=== PATIENT | female | born 1965 | race Caucasian/White ===

== ENCOUNTER → 2018-01-16 | Outpatient (CLI) | payer OTHER ==
--- NOTE | 2018-01-18 09:50 | MM ---
Reason for exam: screening (asymptomatic). Last mammogram was performed 2 years and 10 months ago. History: Took hormonal contraceptives for 10 years beginning at age 21. Physical Findings: A clinical breast exam by your physician is recommended on an annual basis and results should be correlated with mammographic findings. MG 3D Screening Mammo W/Cad Bilateral CC and MLO view(s) were taken. Prior study comparison: March 28, 2015, bilateral MG 3d screening mammo w/cad. October 22, 2013, mammogram, performed at [facility]. The breast tissue is heterogeneously dense. This may lower the sensitivity of mammography. There is no discrete abnormality. ASSESSMENT: Negative, BI-RAD 1 RECOMMENDATION: Routine screening mammogram of both breasts in 1 year.
== END | disposition home or self-care (01) ==
LOC: RADMAMWWP 07:10
PROVIDERS: ATTEND Obstetrics & Gynecology
DX: Z12.31 Encounter for screening mammogram for malignant neoplasm of breast (principal)
CPT/HCPCS: 77063; 77067

== ENCOUNTER → 2019-03-06 | Outpatient (CLI) | payer OTHER ==
--- NOTE | 2019-03-07 10:41 | MM ---
Reason for exam: screening (asymptomatic). Last mammogram was performed 1 year and 2 months ago. History: Took hormonal contraceptives for 10 years beginning at age 21. Physical Findings: A clinical breast exam by your physician is recommended on an annual basis and results should be correlated with mammographic findings. MG 3D Screening Mammo W/Cad Bilateral CC and MLO view(s) were taken. Prior study comparison: January 16, 2018, bilateral MG 3d screening mammo w/cad. March 28, 2015, bilateral MG 3d screening mammo w/cad. The breast tissue is heterogeneously dense. This may lower the sensitivity of mammography. No suspicious abnormality. No significant changes when compared with prior studies. ASSESSMENT: Negative, BI-RAD 1 RECOMMENDATION: Routine screening mammogram of both breasts in 1 year.
== END | disposition home or self-care (01) ==
LOC: RADMAMWWP 07:21
PROVIDERS: ATTEND Obstetrics & Gynecology
DX: Z12.31 Encounter for screening mammogram for malignant neoplasm of breast (principal)
CPT/HCPCS: 77063; 77067

== ENCOUNTER → 2020-07-02 | Outpatient (CLI) | payer OTHER ==
--- NOTE | 2020-07-04 13:28 | MM ---
Reason for exam: screening (asymptomatic). Last mammogram was performed 1 year and 4 months ago. History: Patient is postmenopausal. Took hormonal contraceptives for 10 years beginning at age 21. Took estrogen for 3 years beginning at age 52. Took progesterone for 3 years beginning at age 52. Physical Findings: A clinical breast exam by your physician is recommended on an annual basis and results should be correlated with mammographic findings. MG 3D Screening Mammo W/Cad Bilateral CC and MLO view(s) were taken. Prior study comparison: March 06, 2019, bilateral MG 3d screening mammo w/cad. January 16, 2018, bilateral MG 3d screening mammo w/cad. The breast tissue is heterogeneously dense. This may lower the sensitivity of mammography. There is no discrete abnormality. No significant changes when compared with prior studies. ASSESSMENT: Negative, BI-RAD 1 RECOMMENDATION: Routine screening mammogram of both breasts in 1 year.
== END | disposition home or self-care (01) ==
LOC: RADMAMWWP 08:14
PROVIDERS: ATTEND Obstetrics & Gynecology
DX: Z12.31 Encounter for screening mammogram for malignant neoplasm of breast (principal)
CPT/HCPCS: 77063; 77067

== ENCOUNTER 2021-05-11 10:57 | Emergency (ER) | payer OTHER ==
[2021-05-11] MEDS ORDERED: IBUPROFEN 600 MG TAB PO STA (14:08)
[2021-05-11] MEDS ORDERED: ONDANSETRON ODT 4 MG TAB PO STA (14:08)
[2021-05-11] MEDS ORDERED: ACETAMINOPHEN TAB 500 MG TAB PO STA (14:08)
--- NOTE | 2021-05-11 14:15 | ED ---
General Adult HPI - General Chief complaint: Upper Respiratory Infection Stated complaint: covid+, wants infusion Time Seen by Provider: 05/11/21 13:18 Source: patient Mode of arrival: ambulatory Limitations: no limitations - History of Present Illness Initial comments: 56-year-old female presents to the emergency room for antibody infusion. Patient states she developed symptoms on May 05 and was tested Covid positive at that time. Patient states her doctor is and trying to get her in antibody infusion but it has not been working out that she came to the ER. Patient states she has had nausea and body aches. She has had a cough as well. She denies shortness of breath. She is not vaccinated. Patient has no other complaints at this time including sob, chest pain, abdominal pain, vomiting, headache, or visual changes. - Related Data Home Medications Medication Instructions Recorded Confirmed Ascorbic Acid [Vitamin C] 1,000 mg PO DAILY 05/11/21 05/11/21 Cholecalciferol (Vitamin D3) 125 mcg PO DAILY 05/11/21 05/11/21 [Vitamin D3 (125 MCG = 5,000 IU)] Magnesium Oxide [Yap] 500 mg PO DAILY 05/11/21 05/11/21 Progesterone, Micronized 200 mg PO HS 05/11/21 05/11/21 [Progesterone] Zinc 50 mg PO DAILY 05/11/21 05/11/21 Allergies Allergy/AdvReac Type Severity Reaction Status Date / Time nitrofurantoin Allergy Rash/Hives Verified 05/11/21 14:16 [From Macrobid] Review of Systems ROS Statement: Those systems with pertinent positive or pertinent negative responses have been documented in the HPI. ROS Other: All systems not noted in ROS Statement are negative. Past Medical History History of Any Multi-Drug Resistant Organisms: None Reported Past Surgical History: Section, Uterine Ablation Past Psychological History: No Psychological Hx Reported Smoking Status: Never smoker Past Alcohol Use History: None Reported, Occasional Past Drug Use History: None Reported General Exam Limitations: no limitations General appearance: alert, in no apparent distress Head exam: Present: atraumatic Eye exam: Present: normal appearance, PERRL, EOMI. Absent: scleral icterus, conjunctival injection ENT exam: Present: normal exam, mucous membranes moist Neck exam: Present: normal inspection, full ROM. Absent: tenderness Respiratory exam: Present: normal lung sounds bilaterally. Absent: respiratory distress, wheezes Cardiovascular Exam: Present: regular rate, normal rhythm, normal heart sounds GI/Abdominal exam: Present: soft, normal bowel sounds. Absent: distended, tenderness Course Vital Signs 05/11/21 12:31 Temperature 98.7 F Pulse Rate 101 H Respiratory 22 Rate Blood Pressure 106/67 O2 Sat by Pulse 97 Oximetry Medical Decision Making - Medical Decision Making Vitals are stable. Patient is well-appearing. Lungs are clear. Patient unfortunately does not qualify for antibody infusion given we are currently using the [place] prioritization guidelines. At this time she will be discharged home to follow up with primary care and will return here for any worsening symptoms. Disposition Clinical Impression: COVID-19 Disposition: HOME SELF-CARE Condition: Good Instructions (If sedation given, give patient instructions): Coronavirus Disease 2019 (COVID-19) Additional Instructions: Please take Motrin and Tylenol as needed for pain or fever. Take Zofran as needed for nausea. Get plenty of rest and drink plenty of fluids. Take vitamin C, D, and zinc [id number]. Return to the emergency room for any worsening symptoms. Is patient prescribed a controlled substance at d/c from ED?: No Referrals: Nick Sandoval MD [Primary Care Provider] - 1-2 days Time of Disposition: 14:28
[2021-05-11 15:11] VITALS: BP 106/74; PULSE 88; RESP 20; TEMP 98.1
== END 2021-05-11 15:12 | disposition home or self-care (01) ==
LOC: EC 10:57
DX: U07.1 COVID-19 (principal); Z88.3 Allergy status to other anti-infective agents
CPT/HCPCS: 99283

== ENCOUNTER → 2021-07-29 | Outpatient (CLI) | payer OTHER ==
--- NOTE | 2021-07-31 12:08 | MM ---
Reason for exam: screening (asymptomatic). Last mammogram was performed 1 year and 1 month ago. History: Patient is postmenopausal. Took hormonal contraceptives for 10 years beginning at age 21. Taking estrogen for 3 years beginning at age 52. Taking progesterone for 3 years beginning at age 52. Physical Findings: A clinical breast exam by your physician is recommended on an annual basis and results should be correlated with mammographic findings. MG 3D Screening Mammo W/Cad Bilateral CC and MLO view(s) were taken. Prior study comparison: July 02, 2020, bilateral MG 3d screening mammo w/cad. March 06, 2019, bilateral MG 3d screening mammo w/cad. There are scattered fibroglandular densities. No significant changes when compared with prior studies. ASSESSMENT: Benign, BI-RAD 2 RECOMMENDATION: Routine screening mammogram of both breasts in 1 year.
== END | disposition home or self-care (01) ==
LOC: RADMAMWWP 07:34
PROVIDERS: ATTEND Obstetrics & Gynecology
DX: Z12.31 Encounter for screening mammogram for malignant neoplasm of breast (principal)
CPT/HCPCS: 77063; 77067

== ENCOUNTER → 2022-07-30 | Outpatient (CLI) | payer OTHER ==
--- NOTE | 2022-08-02 12:41 | MM ---
Reason for Exam: Screening (asymptomatic). Last screening mammogram was performed 12 month(s) ago. Patient History: Menarche at age 14. First Full-Term at age 28. Postmenopausal. Currently using Estrogen, beginning at age 52 for 3 years. Currently using Progesterone, beginning at age 52 for 3 years. Hormonal Contraceptives for 10 years from age 21 until age 33. Risk Values: Letitia 5 year model risk: 1.3%. NCI Lifetime model risk: 9.1%. Prior Study Comparison: 03/06/2019 Bilateral Screening Mammogram, [facility]. 07/02/2020 Bilateral Screening Mammogram, [facility]. 07/29/2021 Bilateral Screening Mammogram, [facility]. Tissue Density: There are scattered fibroglandular densities. Findings: Analyzed By CAD. There is new group of heterogeneous indistinct calcifications in the middle to posterior depth left breast slightly inner aspect that warrants further workup. Overall Assessment: Incomplete: need additional imaging evaluation, BI-RAD 0 Management: Special View Mammogram of the left breast. Returned for additional spot magnification and 3-D true lateral views left breast. Electronically signed and approved by: Rigoberto Ortega M.D.
== END | disposition home or self-care (01) ==
LOC: RADMAMWWP 07:18
PROVIDERS: ATTEND Obstetrics & Gynecology
DX: Z12.31 Encounter for screening mammogram for malignant neoplasm of breast (principal); Z78.0 Asymptomatic menopausal state
CPT/HCPCS: 77063; 77067

== ENCOUNTER → 2022-08-05 | Outpatient (CLI) | payer OTHER ==
--- NOTE | 2022-08-05 07:32 | MM ---
Reason for Exam: Additional evaluation requested from abnormal screening. Last screening mammogram was performed less than 1 month ago. Patient History: Menarche at age 14. First Full-Term at age 28. Postmenopausal. Currently using Estrogen, beginning at age 52 for 3 years. Currently using Progesterone, beginning at age 52 for 3 years. Hormonal Contraceptives for 10 years from age 21 until age 33. Risk Values: Letitia 5 year model risk: 1.3%. NCI Lifetime model risk: 9.1%. Prior Study Comparison: 07/02/2020 Bilateral Screening Mammogram, [facility]. 07/29/2021 Bilateral Screening Mammogram, [facility]. 07/30/2022 Bilateral MG 3D screening mammo w/cad, [facility]. Tissue Density: Left: The breast tissue is almost entirely fat. Findings: Analyzed By CAD. Persistent grouped suspicious consultations left breast.. These are new compared to 07/29/2021 they are located slightly medial posterior nipple that on CC view 8.0 cm from the nipple spanning a 6 area up to 1.5 x 0.9 cm on mag LCC view. Overall Assessment: Suspicious, BI-RAD 4 Management: Stereotactic Core Biopsy of the left breast. A clinical breast exam by your physician is recommended on an annual basis and results should be correlated with mammographic findings. This exam should not preclude additional follow-up of suspicious palpable abnormalities. Results were given to the patient verbally at the time of exam. Electronically signed and approved by: Pollo Oro DO
== END | disposition home or self-care (01) ==
LOC: RADMAMWWP 06:59
PROVIDERS: ATTEND Obstetrics & Gynecology
DX: R92.1 Mammographic calcification found on diagnostic imaging of breast (principal); R92.8 Other abnormal and inconclusive findings on diagnostic imaging of breast; Z78.0 Asymptomatic menopausal state
CPT/HCPCS: 77061; 77065

== ENCOUNTER → 2022-08-27 | Outpatient (CLI) | payer OTHER ==
[2022-08-27 08:46] VITALS: RESP 17
== END ==
LOC: WWCWWP 08:15
PROVIDERS: ATTEND Surgery
DX: R92.8 Other abnormal and inconclusive findings on diagnostic imaging of breast (principal); Z88.1 Allergy status to other antibiotic agents

== ENCOUNTER → 2022-08-27 | Day surgery (SDC) | payer OTHER ==
[2022-08-27 07:29] VITALS: BP 151/79; PULSE 94; RESP 16; TEMP 97.8
--- NOTE | 2022-08-27 08:20 | P.GSHP ---
History of Present Illness H&P Date: 08/27/22 Chief Complaint: Abnormal left breast mammogram Marcie is a 57-year-old white female seen in consultation for Dr. Walden regarding a mammographic abnormality in the left breast. She underwent a bilateral screening mammogram on 320 [id number]. Additional studies were [place] [address]. This revealed persisting groups suspicious calcifications in the left breast located slightly medial and posterior to the nipple. Stereotactic core biopsy of the left breast was recommended. No lesions of concern were identified in the right breast. The patient is not complaining of any new lumps masses or nodules of concern in either breast. She is not complaining of any nipple discharge or skin changes. She hasn't had any recent trauma or infection in the breast. She has never had any surgery on her breast. Caffiene: 2 cups/day nicotine: none chocolate: three times a week BCP: 10 years stopped at 32 hormones: bioidentical using them for three years; pellets implanted approximately 6 weeks ago; minimal estrogen in pellet Family History: mother: uterine cancer Hormonal History: menarche: 13 , breast fed: yes, age at first : 28 menopause: ablation at 49, using hormones for about 3 years pellets Surgical History: uterine ablation varicose veins Medical History: none Social History: Nicotine: none alcohol: none drugs: none - Constitutional Constitutional: Denies chills, Denies fever - EENT Eyes: denies blurred vision, denies pain Ears: deny: decreased hearing, tinnitus Ears, nose, mouth and throat: Denies headache, Denies sore throat - Breasts Breasts: bilateral: as per HPI - Cardiovascular Cardiovascular: Denies chest pain, Denies shortness of breath - Respiratory Respiratory: Denies cough, Denies 7 - Gastrointestinal Gastrointestinal: Denies abdominal pain, Denies diarrhea, Denies nausea, Denies vomiting - Genitourinary (Female) Comment: UTI Genitourinary: Denies dysuria, Denies hematuria - Menstruation Menstruation: Reports as per HPI - Musculoskeletal Musculoskeletal: Reports myalgias - Integumentary Integumentary: Denies pruritus, Denies rash - Neurological Neurological: Denies numbness, Denies weakness - Psychiatric Psychiatric: Denies anxiety, Denies depression - Endocrine Endocrine: Denies fatigue, Denies weight change - Hematologic/Lymphatic Comment: none - Allergic/Immunologic Allergic/Immunologic: Reports as per HPI, Reports seasonal allergies Past Medical History Past Medical History: No Reported History History of Any Multi-Drug Resistant Organisms: None Reported Past Surgical History: Section, Uterine Ablation Additional Past Surgical History / Comment(s): Blephoplasty bilat eyes Past Anesthesia/Blood Transfusion Reactions: No Reported Reaction Past Psychological History: No Psychological Hx Reported Smoking Status: Never smoker Past Alcohol Use History: Occasional Past Drug Use History: None Reported Medications and Allergies Home Medications Medication Instructions Recorded Confirmed Type Ascorbic Acid [Vitamin C] 1,000 mg PO DAILY 05/11/21 08/27/22 History Cholecalciferol (Vitamin D3) 125 mcg PO DAILY 05/11/21 08/27/22 History [Vitamin D3 (125 MCG = 5,000 IU)] Magnesium Oxide [Yap] 500 mg PO DAILY 05/11/21 08/27/22 History Progesterone, Micronized 200 mg PO HS 05/11/21 08/27/22 History [Progesterone] Biotin [Biotin Disolve] 5,000 mcg PO DAILY 08/06/22 08/27/22 History Allergies Allergy/AdvReac Type Severity Reaction Status Date / Time nitrofurantoin Allergy Rash/Hives Verified 08/27/22 07:22 [From Macrobid] Surgical - Exam Vital Signs Temp Pulse Resp BP 97.8 F 94 16 151/79 08/27/22 07:22 08/27/22 07:22 08/27/22 07:22 08/27/22 07:22 - General no distress - Eyes normal ocular movement - Neck trachea midline - Respiratory normal respiratory effort, clear to auscultation - Cardiovascular Rhythm: regular - Abdomen Abdomen: soft, non tender, no guarding, no rigid, no rebound - Integumentary normal turgor - Neurologic no disoriented, no combative - Musculoskeletal normal gait - Psychiatric oriented to time, oriented to person, oriented to place, speech is normal, memory intact Breast Exam: BRA: 36D Inspection: Bilateral grade 2 ptosis Palpation: Right breast slightly larger than left breast, multiple positional exam fibrocystic breast changes, dense breast tissue Right axilla: No adenopathy of concern Left breast: Multi-positional exam dense breast tissue, no dominant masses or nodules of concern Left axilla: No adenopathy of concern Results Mammogram reviewed personally with Dr. Welch, microcalcifications of concern left breast slightly medial mid portion of breast Assessment and Plan Assessment: Impression: Microcalcifications of concern left breast Plan: Stereotactic core biopsy left breast Patient is presently getting hormone replacement therapy Risk and benefits of the procedure discussed with the patient, she understands and wishes to proceed. Risks include but are not limited to bleeding, infection, reaction to the anesthetic. If the tissue acquisition recorded be discordant and it may be necessary to give further tissue. Additionally we have discussed the fact that the patient has hormone pellets in place and is taking oral progesterone. At this time she is going to continue her oral progesterone, although we have discussed stopping it until we find out the results of the biopsy. Cc: Dr. Walden
--- NOTE | 2022-08-27 08:43 | P.PN ---
Progress Note - Text Progress Note Date: 08/27/22 The patient was positioned on the lo rad table. The lesion of concern is in close proximity to some enlarged blood vessels. This was reviewed with Dr. Welch from radiology as well. It was felt that it was not safe to proceed with a stereotactic core biopsy secondary to the proximity of the blood vessels. Therefore the procedure was terminated and the patient will be scheduled for needle localization and excision in the operating room.
--- NOTE | 2022-09-01 12:10 | MM ---
The patient was positioned on the lo rad table. The lesion of concern is in close proximity to some enlarged blood vessels. This was reviewed with Dr. Welch from radiology as well. It was felt that it was not safe to proceed with a stereotactic core biopsy secondary to the proximity of the blood vessels. Therefore the procedure was terminated and the patient will be scheduled for needle localization and excision in the operating room. After the patient was off the lo rad table we had a discussion regarding needle localization and resection of the area of concern in the left breast in the Operating Room. The patient understands the risks of the procedure include but are not limited to: Bleeding, infection, reaction to the anesthetic. There is a possibility that the lesion could be localized the needle could move and we would not get the area of concern. If that were to happen its possible additional tissue would need to be acquired. Additionally if this were to be positive for malignancy it is possible that further surgery would be necessary. She understands and wishes to proceed. KEANU
== END ==
LOC: RADMAMWWP 07:14
PROVIDERS: ATTEND Surgery
DX: R92.8 Other abnormal and inconclusive findings on diagnostic imaging of breast (principal); Z53.8 Procedure and treatment not carried out for other reasons

== ENCOUNTER 2022-09-14 07:10 | Day surgery (SDC) | payer OTHER ==
[2022-09-09 11:44] VITALS: BMI 25.7
--- NOTE | 2022-09-09 18:06 | P.PN ---
Subjective Progress Note Date: 09/09/22 Principal diagnosis: Abnormal left breast mammogram Marcie is a 57-year-old white female seen in consultation for Dr. Walden regarding a mammographic abnormality in the left breast. [place] [id number]. Additional studies were [place] [id number]. This revealed persisting groups suspicious calcifications in the left breast located slightly medial and posterior to the nipple. Stereotactic core biopsy of the left breast was recommended. No lesions of concern were identified in the right breast. The patient is not complaining of any new lumps masses or nodules of concern in either breast. She is not complaining of any nipple discharge or skin changes. She hasn't had any recent trauma or infection in the breast. She has never had any surgery on her breast. [place] [address]. Secondary to enlarged vessels being in proximity to the calcifications this was reviewed with Dr. Welch from radiology where the patient was on the stereotactic core biopsy table. It was felt that it was not safe to proceed with the procedure and the procedure was therefore terminated. However the area of concern was still felt to warrant biopsy was recommended that a needle localization excisional lumpectomy be performed. Caffiene: 2 cups/day nicotine: none chocolate: three times a week BCP: 10 years stopped at 32 hormones: bioidentical using them for three years; pellets implanted approximately 6 weeks ago; minimal estrogen in pellet Family History: mother: uterine cancer Hormonal History: menarche: 13 , breast fed: yes, age at first : 28 menopause: ablation at 49, using hormones for about 3 years pellets Surgical History: uterine ablation varicose veins Medical History: none Social History: Nicotine: none alcohol: none drugs: none - Constitutional Constitutional: Denies chills, Denies fever - EENT Eyes: denies blurred vision, denies pain Ears: deny: decreased hearing, tinnitus Ears, nose, mouth and throat: Denies headache, Denies sore throat - Breasts Breasts: bilateral: as per HPI - Cardiovascular Cardiovascular: Denies chest pain, Denies shortness of breath - Respiratory Respiratory: Denies cough - Gastrointestinal Gastrointestinal: Denies abdominal pain, Denies diarrhea, Denies nausea, Denies vomiting - Genitourinary (Female) Comment: UTI Genitourinary: Denies dysuria, Denies hematuria - Menstruation Menstruation: Reports as per HPI - Musculoskeletal Musculoskeletal: Reports myalgias - Integumentary Integumentary: Denies pruritus, Denies rash - Neurological Neurological: Denies numbness, Denies weakness - Psychiatric Psychiatric: Denies anxiety, Denies depression - Endocrine Endocrine: Denies fatigue, Denies weight change - Hematologic/Lymphatic Comment: none - Allergic/Immunologic Allergic/Immunologic: Reports as per HPI, Reports seasonal allergies Past Medical History Past Medical History: No Reported History History of Any Multi-Drug Resistant Organisms: None Reported Past Surgical History: Section, Uterine Ablation Additional Past Surgical History / Comment(s): Blephoplasty bilat eyes Past Anesthesia/Blood Transfusion Reactions: No Reported Reaction Past Psychological History: No Psychological Hx Reported Smoking Status: Never smoker Past Alcohol Use History: Occasional Past Drug Use History: None Reported Medications and Allergies Home Medications Medication Instructions Recorded Confirmed Type Ascorbic Acid [Vitamin C] 1,000 mg PO DAILY 05/11/21 08/27/22 History Cholecalciferol (Vitamin D3) 125 mcg PO DAILY 05/11/21 08/27/22 History [Vitamin D3 (125 MCG = 5,000 IU)] Magnesium Oxide [Yap] 500 mg PO DAILY 05/11/21 08/27/22 History Progesterone, Micronized 200 mg PO HS 05/11/21 08/27/22 History [Progesterone] Biotin [Biotin Disolve] 5,000 mcg PO DAILY 08/06/22 08/27/22 History Allergies Allergy/AdvReac Type Severity Reaction Status Date / Time nitrofurantoin Allergy Rash/Hives Verified 08/27/22 07:22 [From Macrobid] Objective - Vital Signs Vital signs: Intake & Output 09/08/22 09/09/22 09/09/22 18:59 06:59 18:59 Weight 68.039 kg - Constitutional General appearance: Present: cooperative - EENT Eyes: Present: EOMI ENT: Present: hearing grossly normal - Neck Neck: Present: normal ROM - Respiratory Respiratory: bilateral: CTA - Cardiovascular Rhythm: regular Heart sounds: normal: S1, S2 - Gastrointestinal General gastrointestinal: Present: soft - Integumentary Integumentary: Present: normal turgor - Musculoskeletal Musculoskeletal: Present: gait normal - Psychiatric Psychiatric: Present: A&O x's 3, appropriate affect, intact judgment & insight - Additional findings Additional findings: Breast Exam: BRA: 36D Inspection: Bilateral grade 2 ptosis Palpation: Right breast slightly larger than left breast, multiple positional exam fibrocystic breast changes, dense breast tissue Right axilla: No adenopathy of concern Left breast: Multi-positional exam dense breast tissue, no dominant masses or nodules of concern Left axilla: No adenopathy of concern Assessment and Plan Assessment: Impression: Radiographic abnormality left breast. Unable to perform stereotactic core biopsy secondary to proximity of large vessels in the vicinity. patient recommended as per radiology for needle localization and excisional biopsy. Plan: Needle localization area of concern in the left breast with lumpectomy, possible onco-plastic tissue transfer. Risk and benefits of the procedure discussed with the patient. Risks include are not limited to bleeding, infection, reaction to the anesthetic. The patient understands and wishes to proceed.
[~2022-09-14 07:10] MED LIST: DEXAMETHASONE SOD PHOSPHATE 4 MG/ML 1 ML VIAL IV ONE; HEPARIN SODIUM,PORCINE/PF 5,000 UNIT/0.5 ML SYRINGE SQ PRN; HYDROmorphone 0.5 MG/0.5 ML SYRINGE IVP PRN; LIDOCAINE 1% (10MG/ML) FOR IV START INTRADERMA PRN; MIDAZOLAM 2 MG/2 ML VIAL IV PRN; ONDANSETRON 4 MG/2 ML VIAL IVP ONE; Pre Op ABX Message 1 EACH MISC MISCELLANE ONE
[2022-09-14] MEDS ORDERED: ALPRAZolam 0.5 MG TAB ONE (07:45)
[2022-09-14] MEDS: LACTATED RINGERS 1,000 ML IV SCH ×2 (07:47→09:41)
[2022-09-14] MEDS ORDERED: LIDOCAINE 1% (10MG/ML) FOR IV START SQ ONE (09:00)
[2022-09-14] MEDS ORDERED: fentaNYL (PF) 50 MCG/ML 2 ML AMP ONE (09:39)
[2022-09-14] MEDS ORDERED: LIDOCAINE 2% INJ 20 MG/ML (2 ML VIAL) ONE (09:39)
[2022-09-14] MEDS ORDERED: PROPOFOL 10 MG/ML 20 ML VIAL IV ONE (09:39)
[2022-09-14] MEDS ORDERED: MIDAZOLAM 2 MG/2 ML VIAL ONE (09:39)
[2022-09-14] MEDS ORDERED: PHENYLEPHRINE-0.9% NACL SYG 1,000 MCG/10 ML SYRINGE ONE (09:39)
[2022-09-14] MEDS ORDERED: LACTATED RINGERS 1,000 ML IV ONE (10:35)
--- NOTE | 2022-09-14 10:40 | P.OP ---
Date of Procedure: 09/14/22 Preoperative Diagnosis: Calcifications of concern left breast, not able to do stereotactic core biopsy Postoperative Diagnosis: Same Procedure(s) Performed: Needle localization excisional biopsy left breast Anesthesia: MELCHOR Surgeon: Tashia Bauer Estimated Blood Loss (ml): 10 IV fluids (ml): 1,000 Pathology: other (Breast tissue/radiographic specimen revealed microcalcifications of concern) Condition: stable Disposition: same day Indications for Procedure: Microcalcifications of concern left breast Operative Findings: Radiographic specimen revealed microcalcifications of concern Description of Procedure: Patient was taken to the operating room and following induction of anesthesia the left breast was prepped and draped in a sterile fashion. An incision was made and carried down to the hook of the needle. Surrounding tissue was excised. The tissue was painted for orientation. Radiograph of the specimen revealed the calcifications of concern. The wound was well irrigated. Titanium clips were placed. After assured that hemostasis was attained the deep tissues were closed using 3-0 Vicryl suture. This is followed by 3-0 Vicryl suture closure of the subcutaneous tissue. Subcuticular 4-0 Monocryl closure was placed. Steri-Strips were applied. The patient tolerated procedure in stable condition. All instrument and sponge counts were correct at the end of the case.
--- NOTE | 2022-09-14 10:42 | P.DS ---
Providers Attending physician: Tashia Bauer Primary care physician: Nick Sandoval Plan - Discharge Summary Discharge Rx Participant: No New Discharge Prescriptions: New HYDROcodone/APAP 5-325MG [[place] 5] 1 - 2 each PO Q4H PRN #10 tab PRN Reason: Pain No Action Progesterone, Micronized [Progesterone] 200 mg PO HS Ascorbic Acid [Vitamin C] 1,000 mg PO DAILY Biotin [Biotin Disolve] 5,000 mcg PO DAILY Nf-Dim Supplement 1 tab PO DAILY Cranberry Fruit Extract [Cranberry] 200 mg PO DAILY Cholecalciferol (Vitamin D3) [Vitamin D3 (125 MCG = 5,000 IU)] 125 mcg PO DAILY Discharge Medication List Ascorbic Acid [Vitamin C] 1,000 mg PO DAILY 05/11/21 [History] Cholecalciferol (Vitamin D3) [Vitamin D3 (125 MCG = 5,000 IU)] 125 mcg PO DAILY 05/11/21 [History] Progesterone, Micronized [Progesterone] 200 mg PO HS 05/11/21 [History] Biotin [Biotin Disolve] 5,000 mcg PO DAILY 08/06/22 [History] Cranberry Fruit Extract [Cranberry] 200 mg PO DAILY 09/09/22 [History] Nf-Dim Supplement 1 tab PO DAILY 09/09/22 [History] HYDROcodone/APAP 5-325MG [[place] 5] 1 - 2 each PO Q4H PRN #10 tab 09/14/22 [Rx] Follow up Appointment(s)/Referral(s): Tashia Bauer MD [STAFF PHYSICIAN] - 09/23/22 3:20 pm Activity/Diet/Wound Care/Special Instructions: May shower after 48 hours Wear bra at all times Do not drive for at least 24 hours from discharge or if taking narcotic pain medicine Discharge Disposition: HOME SELF-CARE
[2022-09-14 10:58] VITALS: TEMP 96.8
[2022-09-14] MEDS ORDERED: KETOROLAC 15 MG/ML 1 ML VIAL IVP ONE (11:16)
[2022-09-14 13:17] VITALS: BP 122/80; PULSE 70; RESP 20
--- NOTE | 2022-09-24 10:13 | MM ---
Risk Values: Letitia 5 year model risk: 1.3%. NCI Lifetime model risk: 9.1%. Pathology Description: Approach: Medial to Lateral Needle Type: 9 cm Kopan no problems The needle localization procedure with wire placement for surgical excision was explained to the patient. Benefits, alternatives, and risks were discussed. An informed consent was then obtained. A timeout was performed. The overlying skin was prepped in usual sterile fashion. Lidocaine was used as anesthetic into the skin and subcutaneous tissue up to the level of area of concern. A 9 cm needle was used. It was placed using a medial approach under mammographic guidance. Subsequent 90 degrees mammogram show the needle to be in satisfactory position relative to the targeted area. The wire was placed and the needle was withdrawn. The wire was fixed to patient's skin. Images were marked for surgeon. The patient tolerated the procedure well without any immediate complication. The patient was kept in the radiology department for short stay after the procedure and then taken to surgery for surgical excision. Specimen: Breast calcifications and wire are identified in specimen mammogram. Impression: 1. Successful needle localization with wire placement and surgical excision of calcifications. Pathology Results: Result: Malignant, Ductal carcinoma in situ, comedo type. LEFT BREAST, NEEDLE LOCALIZATION EXCISION: High grade ductal carcinoma in situ (DCIS) with calcifications and comedo necrosis, closely approximating the posterior margin multifocally (DCIS is less than 1 mm from the posterior margin multifocally). Focal atypical ductal hyperplasia (ADH), margins negative for ADH. Background fibrocystic changes including microcalcifications. See note. Notes: SURGICAL PATHOLOGY CANCER CASE SUMMARY - DCIS OF THE BREAST, RESECTION PROCEDURE: Excision (less than total mastectomy). SPECIMEN LATERALITY: Left. HISTOLOGIC TYPE: Ductal carcinoma in situ. SIZE (EXTENT) OF DCIS: Estimated size (extent) of DCIS is at least 2 mm by direct measurement. NUCLEAR GRADE: Grade 3. NECROSIS: Present, central (expansive "comedo" necrosis). MICROCALCIFICATIONS: Present in DCIS and in non-neoplastic tissue. MARGINS: DCIS closely approximates the posterior margin multifocally (DCIS is less than 1 mm from the posterior margin multifocally). Other margins negative. REGIONAL LYMPH NODES: Not applicable. PATHOLOGIC STAGE CLASSIFICATION (pTNM, AJCC 8th Edition): PRIMARY TUMOR: pTis (DCIS). REGIONAL LYMPH NODES: pNX. DISTANT METASTASIS: Not applicable. ADDITIONAL FINDINGS: Focal atypical ductal hyperplasia (ADH), margins negative. Background fibrocystic changes with microcalcifications. 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 Giacomo Lopez, who agrees with the diagnosis of DCIS. ANCILLARY STUDIES: ESTROGEN RECEPTOR (ER): Positive (91-100%), moderate intensity staining. PROGESTERONE RECEPTOR (PA): Positive (11-20%), weak to moderate intensity staining. Additional formalin-fixed paraffin embedded sections from block A21 are immunostained at [facility], [place], [place] for the demonstration of estrogen and progesterone receptors, using rabbit IgG monoclonal antibodies ER clone [id number] and PA clone [id number] with iView DAB detection ([place], [place], [place]). Using this method, and according to ASCO-CAP guidelines, a value of >1% nuclear staining is a positive result. Overall Assessment: Malignant Management: Surgical Consultation of the left breast. Electronically signed and approved by: Manuelito Welch D.O. Radiologis
== END 2022-09-14 13:19 | disposition home or self-care (01) ==
LOC: OR 07:10
PROVIDERS: ATTEND Surgery
DX: D05.12 Intraductal carcinoma in situ of left breast (principal); K21.9 Gastro-esophageal reflux disease without esophagitis; Z88.1 Allergy status to other antibiotic agents; Z79.899 Other long term (current) drug therapy
CPT/HCPCS: 88342; 88307; 88341; 76098; 19125; J2250; J1100; J2405; J3010; J1885; J2370; J2704; J1170; J1644; J2001

== ENCOUNTER → 2022-09-23 | Outpatient (CLI) | payer OTHER ==
[2022-09-23 15:41] VITALS: BP 137/82; PULSE 127; RESP 18; TEMP 98.2
--- NOTE | 2022-09-23 16:06 | P.PN ---
Progress Note - Text Progress Note Date: 09/23/22 There is a 57-year-old white female status post left breast needle localization and excisional biopsy of 5923. This was secondary to microcalcifications of concern in the left breast. An attempt at stereo biopsy was made however the chin had blood vessels in the vicinity and was therefore recommended that a needle local excision be performed. Pathology revealed ductal carcinoma in situ. The posterior margin was close at less than 1 mm. Thick pathology specimen was reviewed in detail with Dr. He from radiology. There is some question as to whether residual calcifications of concern remain in the breast. 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 Sandoval
== END ==
LOC: WWCWWP 15:21
PROVIDERS: ATTEND Surgery
DX: D05.12 Intraductal carcinoma in situ of left breast (principal); Z88.8 Allergy status to other drugs, medicaments and biological substances

== ENCOUNTER 2022-12-02 06:12 | Day surgery (SDC) | payer OTHER ==
[2022-11-25 08:42] VITALS: BMI 25.7
[~2022-12-02 06:12] MED LIST changes: -DEXAMETHASONE SOD PHOSPHATE 4 MG/ML 1 ML VIAL IV ONE; -HYDROmorphone 0.5 MG/0.5 ML SYRINGE IVP PRN; -LIDOCAINE 1% (10MG/ML) FOR IV START INTRADERMA PRN; -MIDAZOLAM 2 MG/2 ML VIAL IV PRN; -ONDANSETRON 4 MG/2 ML VIAL IVP ONE
[2022-12-02] MEDS ORDERED: ONDANSETRON 4 MG/2 ML VIAL ONE ×2 (06:52→10:36)
[2022-12-02] MEDS ORDERED: LACTATED RINGERS 1,000 ML IV ONE ×3 (06:58→08:31)
[2022-12-02] MEDS ORDERED: ONDANSETRON 4 MG/2 ML VIAL IVP ONE ×2 (06:59→10:38)
[2022-12-02] MEDS ORDERED: DEXAMETHASONE SOD PHOSPHATE 4 MG/ML 1 ML VIAL IVP ONE (06:59)
[2022-12-02] MEDS ORDERED: fentaNYL (PF) 50 MCG/ML 2 ML AMP ONE (07:24)
[2022-12-02] MEDS ORDERED: MIDAZOLAM 2 MG/2 ML VIAL ONE (07:24)
[2022-12-02] MEDS ORDERED: LIDOCAINE 2% INJ 20 MG/ML (2 ML VIAL) ONE (07:24)
[2022-12-02] MEDS ORDERED: PROPOFOL 10 MG/ML 20 ML VIAL IV ONE (07:24)
[2022-12-02] MEDS ORDERED: KETOROLAC 15 MG/ML 1 ML VIAL ONE (07:24)
--- NOTE | 2022-12-02 08:35 | P.NAPBC ---
NAPBC Queries - NAPBC Queries Was patient's case review presented at [facility] tumor board? If no, comment.: Yes Was patient's pathology reviewed at [facility]? If no, comment.: Yes Was breast conservation surgery offered? If no, comment.: Yes Was sentinel node biopsy offered? If no, comment.: No Was diagnosis confirmed by percutaneous core biopsy? If no, comment.: No Is patient mastectomy patient?: No Was a preop referral to reconstructive surgeon offered?: No Clinical Stage: stage 0 left breast cancer
--- NOTE | 2022-12-02 08:38 | P.OP ---
Date of Procedure: 12/02/22 Preoperative Diagnosis: Left breast DCIS status post lumpectomy with close margins Postoperative Diagnosis: Same Procedure(s) Performed: Reexcision lumpectomy cavity left breast Anesthesia: AKASHA Surgeon: Tashia Bauer Estimated Blood Loss (ml): 10 IV fluids (ml): 800 Pathology: other (Breast tissue/reexcision lumpectomy cavity) Condition: stable Disposition: same day Indications for Procedure: Lumpectomy for DCIS with close margins Operative Findings: Lumpectomy cavity Description of Procedure: The patient was brought to the operating room and following induction of anesthesia the left breast was prepped and draped in a sterile fashion. Excision of the prior incision was performed. Dissection was carried down to the prior lumpectomy cavity. Wide excision of the cavity was performed. Wide excision was approximately 7 cm x 2.5 cm. Following excision of the cavity the wound was well irrigated. After we assured that hemostasis was attained titanium clips were placed. Surgicel and pyriform was placed. The tissues were brought together to close the defect using 3-0 Vicryl suture. The subcutaneous tissue was closed using 3-0 Vicryl suture. The skin was closed using 4-0 Monoc ryl. The specimen was painted for orientation. The patient tolerated the procedure in stable condition. All instrument and sponge counts were correct at the end of the case.
--- NOTE | 2022-12-02 08:40 | P.DS ---
Providers Attending physician: Tashia Bauer Primary care physician: Nick Sandoval Plan - Discharge Summary Discharge Rx Participant: Yes New Discharge Prescriptions: No Action Ascorbic Acid [Vitamin C] 1,000 mg PO DAILY Biotin [Biotin Disolve] 5,000 mcg PO DAILY Magnesium Oxide [Mag-Ox] 250 mg PO HS Ibuprofen/Diphenhydramine HCl [Advil Pm Liqui-Gels] 1 each PO HS PRN PRN Reason: Insomnia Calcium Carbonate [Tums] 500 mg PO DIRECTED PRN PRN Reason: Heartburn Cholecalciferol (Vitamin D3) [Vitamin D3 (125 MCG = 5,000 IU)] 5,000 units PO DAILY Discharge Medication List Ascorbic Acid [Vitamin C] 1,000 mg PO DAILY 05/11/21 [History] Cholecalciferol (Vitamin D3) [Vitamin D3 (125 MCG = 5,000 IU)] 5,000 units PO DAILY 05/11/21 [History] Biotin [Biotin Disolve] 5,000 mcg PO DAILY 08/06/22 [History] Magnesium Oxide [Mag-Ox] 250 mg PO HS 09/23/22 [History] Calcium Carbonate [Tums] 500 mg PO DIRECTED PRN 11/25/22 [History] Ibuprofen/Diphenhydramine HCl [Advil Pm Liqui-Gels] 1 each PO HS PRN 11/25/22 [History] Follow up Appointment(s)/Referral(s): Tashia Bauer MD [STAFF PHYSICIAN] - 1 Week Activity/Diet/Wound Care/Special Instructions: Pertinent drive for 24 hours from discharge Do not drive if taking narcotic pain medicine The shower after 48 hours Wear bra until seen by Dr. Stover Discharge Disposition: HOME SELF-CARE
[2022-12-02 08:50] VITALS: TEMP 97
[2022-12-02] MEDS ORDERED: HYDROmorphone 0.5 MG/0.5 ML SYRINGE IVP ONE ×2 (09:05→09:34)
[2022-12-02 10:24] VITALS: RESP 17
[2022-12-02 11:32] VITALS: BP 104/68; PULSE 69
== END 2022-12-02 11:54 | disposition home or self-care (01) ==
LOC: OR 06:12
PROVIDERS: ATTEND Surgery
DX: D05.12 Intraductal carcinoma in situ of left breast (principal); Z85.3 Personal history of malignant neoplasm of breast; Z88.1 Allergy status to other antibiotic agents
CPT/HCPCS: 19301; 88307; J2250; J1100; J2405; J3010; J1885; J2704; J1170; J1644; J2001

== ENCOUNTER → 2022-12-09 | Outpatient (CLI) | payer OTHER ==
--- NOTE | 2022-12-09 15:47 | P.PN ---
Progress Note - Text Progress Note Date: 12/09/22 Marcie is a 57-year-old white female status post needle localization lumpectomy of an area of the left breast which revealed DCIS. Margins were [place] [address]. On the reexcision no additional DCIS was noted. All margin sections examined were benign and no evidence of in situ or invasive carcinoma. 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 Physical examination: Lungs: Clear Heart: Regular rate and rhythm Incision: Clean and dry; there may a seroma left breast at lumpectomy site Plan: Follow-up medical oncology Follow-up radiation oncology Follow-up appearance 4 months CC: DR. Sage, Dr. Sandoval
== END ==
LOC: WWCWWP 15:34
PROVIDERS: ATTEND Surgery
DX: Z85.3 Personal history of malignant neoplasm of breast (principal); Z88.8 Allergy status to other drugs, medicaments and biological substances

== ENCOUNTER → 2022-12-28 | Outpatient (CLI) | payer OTHER ==
--- NOTE | 2022-12-28 08:02 | USB ---
Reason for Exam: Clinical finding. Patient History: Menarche at age 14. First Full-Term at age 28. Postmenopausal. Breast cancer, left, age 57. Currently using Estrogen, beginning at age 52 for 3 years. Currently using Progesterone, beginning at age 52 for 3 years. Hormonal Contraceptives for 10 years from age 21 until age 33. 09/14/2022, Lumpectomy on the Left side. 09/14/2022, Malignant MG pre op needle loc LT on the left side. 08/27/2022, MG discontinued stereo core LT on the left side. Technique: Method: Whole Breast Handheld. Prior Study Comparison: 07/30/2022 Bilateral MG 3D screening mammo w/cad, [facility]. 08/05/2022 Left MG 3D work up w/cad LT, [facility]. 11/26/2022 Left MG 3D diag mammo w/cad LT, [facility]. Findings: The whole breast of the left breast, the axilla of the left breast and the retroareolar of the left breast were scanned. Postoperative fluid collection is seen compatible with seroma which extends from the 9:00 position to the 12:00 position and measures approximately 8.6 x 2.3 cm. No solid masses are seen within the [id number]. Overall Assessment: Benign, BI-RAD 2 Management: Diagnostic Mammogram of both breasts in 5 months. A clinical breast exam by your physician is recommended on an annual basis and results should be correlated with mammographic findings. This exam should not preclude additional follow-up of suspicious palpable abnormalities. Results were given to the patient verbally at the time of exam. Electronically signed and approved by: Juan Manuel Tijerina M.D. Radiologis
== END | disposition home or self-care (01) ==
LOC: RADUSWWP 07:16
PROVIDERS: ATTEND Family Medicine
DX: N64.89 Other specified disorders of breast (principal); Z78.0 Asymptomatic menopausal state; Z85.3 Personal history of malignant neoplasm of breast

== ENCOUNTER → 2023-04-15 | Outpatient (CLI) | payer OTHER ==
[2023-04-15 13:28] VITALS: BP 139/87; PULSE 73; RESP 18; TEMP 98.1
--- NOTE | 2023-04-15 13:34 | P.PN ---
Subjective Progress Note Date: 04/15/23 Subjective Progress Note Date: 11/26/22 Principal diagnosis: DCIS left breast Abnormal left breast mammogram Marcie is a 57-year-old white female seen in consultation on 08-27-[address] Walden regarding a mammographic abnormality in the left breast. [place] [address]. Additional studies were recommended [place] [address]. This revealed persisting groups suspicious calcifications in the left breast located slightly medial and posterior to the nipple. Stereotactic core biopsy of the left breast was recommended. No lesions of concern were identified in the right breast. The patient was not complaining of any new lumps masses or nodules of concern in either breast. She was not complaining of any nipple discharge or skin changes. She hadn't had any recent trauma or infection in the breast. She had never had any surgery on her breast. An attempt on that day of the stereo biopsy was performed. However secondary to blood vessels in the vicinity this was canceled and a needle localization and excisional biopsy was recommended. This was performed on 91. Pathology from this revealed high-grade DCIS with calcifications and comedonecrosis along with focal ADH. High-grade DCIS was noted to be in close proximity to the posterior margin at multiple locations less than 1 mm from this margin. The lesion was ER positive and SD positive. There were noted to be residual calcifications in the left breast. Recommendation per radiology was to repeat mammogram in 4 months to further evaluate the calcifications. The patient's case was presented at tumor board and 9021, and at that time she was scheduled for [place] [address]. 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 This puts her at higher risk of medullary thyroid cancer along with hyperparathyroidism and pheochromocytoma. She has been recommended to have formal counseling with the genetic counselor for full evaluation. She was recommended to use tamoxifen as well. As per medical oncology direct mutation would not change the DCIS management. 24 hour urine VMA was WNL reviewed with Dr. Sandoval I have personally reviewed her films with Dr. Albert, and it appears we have removed all calcifications, however to be safe we would consider needle localization of the area as well as re-excision of posterior region. We are going to rule out a pheochromocytoma. Repeat mammogram of the left breast on 11-26-22 did not reveal any residual calcifications, reviewed with Dr. Albert therefore needle localization not necessary prior to surgery. Completed radiation therapy on [id number] Note medical oncology 02-24-23 reviewed; she is taking tamoxifen Note 67100 radiation oncology reviewed At this time no one is managing her risk for medullary thyroid cancer. She will follow up with a crisis clinician next week. She is due for a bilateral mammogram in August 2023. Caffiene: 2 cups/day nicotine: none chocolate: three times a week BCP: 10 years stopped at 32 hormones: bioidentical using them for three years; pellets implanted approximately 6 weeks ago; minimal estrogen in pellet; those have been stopped Family History: mother: uterine cancer Hormonal History: menarche: 13 , breast fed: yes, age at first : 28 menopause: ablation at 49, using hormones for about 3 years pellets Surgical History: uterine ablation varicose veins Left breast lumpectomy Medical History: none Social History: Nicotine: none alcohol: none drugs: none - Constitutional Constitutional: Denies chills, Denies fever - EENT Eyes: denies blurred vision, denies pain Ears: deny: decreased hearing, tinnitus Ears, nose, mouth and throat: Denies headache, Denies sore throat - Breasts Breasts: bilateral: as per HPI - Cardiovascular Cardiovascular: Denies chest pain, Denies shortness of breath - Respiratory Respiratory: Denies cough - Gastrointestinal Gastrointestinal: Denies abdominal pain, Denies diarrhea, Denies nausea, Denies vomiting - Genitourinary (Female) Comment: UTI Genitourinary: Denies dysuria, Denies hematuria - Menstruation Menstruation: Reports as per HPI - Musculoskeletal Musculoskeletal: Reports myalgias - Integumentary Integumentary: Denies pruritus, Denies rash - Neurological Neurological: Denies numbness, Denies weakness - Psychiatric Psychiatric: Denies anxiety, Denies depression - Endocrine Endocrine: Denies fatigue, Denies weight change - Hematologic/Lymphatic Comment: none - Allergic/Immunologic Allergic/Immunologic: Reports as per HPI, Reports seasonal allergies Past Medical History Past Medical History: No Reported History History of Any Multi-Drug Resistant Organisms: None Reported Past Surgical History: Section, Uterine Ablation Additional Past Surgical History / Comment(s): Blephoplasty bilat eyes Past Anesthesia/Blood Transfusion Reactions: No Reported Reaction Past Psychological History: No Psychological Hx Reported Smoking Status: Never smoker Past Alcohol Use History: Occasional Past Drug Use History: None Reported Medications and Allergies Home Medications Medication Instructions Recorded Confirmed Type Ascorbic Acid [Vitamin C] 1,000 mg PO DAILY 05/11/21 08/27/22 History Cholecalciferol (Vitamin D3) 125 mcg PO DAILY 05/11/21 08/27/22 History [Vitamin D3 (125 MCG = 5,000 IU)] Magnesium Oxide [Yap] 500 mg PO DAILY 05/11/21 08/27/22 History Progesterone, Micronized 200 mg PO HS 05/11/21 08/27/22 History [Progesterone] Biotin [Biotin Disolve] 5,000 mcg PO DAILY 08/06/22 08/27/22 History Allergies Allergy/AdvReac Type Severity Reaction Status Date / Time nitrofurantoin Allergy Rash/Hives Verified 08/27/22 07:22 [From Macrobid] Objective - Constitutional General appearance: Present: cooperative - EENT Eyes: Present: EOMI ENT: Present: hearing grossly normal - Neck Neck: Present: normal ROM - Respiratory Respiratory: bilateral: CTA - Cardiovascular Heart sounds: normal: S1, S2 - Integumentary Integumentary: Present: normal turgor - Musculoskeletal Musculoskeletal: Present: gait normal - Psychiatric Psychiatric: Present: A&O x's 3, appropriate affect, intact judgment & insight - Additional findings Additional findings: Breast Exam: BRA: 36D Inspection: Bilateral grade 2 ptosis Palpation: Right breast slightly larger than left breast, multi positional exam fibrocystic breast changes, dense breast tissue Right axilla: No adenopathy of concern Left breast: Multi-positional exam dense breast tissue, no dominant masses or nodules of concern; well-healed scar from prior surgery Left axilla: No adenopathy of concern Assessment and Plan Assessment: Impression: DCIS no evidence of recurrence Positive RET mutation increased risk of pheochromocytoma, medullary thyroid cancer Plan: Bilateral mammogram in August 2023 with examination at that time Patient is seen a genetic counselor to get recommendation regarding risk of medullary thyroid cancer and pheochromocytoma Continue tamoxifen Follow up here in August 2023 CC: Dr. Sandoval
== END ==
LOC: WWCWWP 12:33
PROVIDERS: ATTEND Surgery
DX: R92.8 Other abnormal and inconclusive findings on diagnostic imaging of breast (principal); D05.12 Intraductal carcinoma in situ of left breast; Z92.3 Personal history of irradiation; Z88.1 Allergy status to other antibiotic agents

== ENCOUNTER → 2023-06-02 | Outpatient (CLI) | payer OTHER ==
--- NOTE | 2023-06-02 08:06 | MM ---
Reason for Exam: Clinical finding. Last screening mammogram was performed 10 month(s) ago. Indicated Problems: Lump or thickening of the right side for 1 Week(s). Patient History: Menarche at age 14. First Full-Term at age 28. Postmenopausal. Breast cancer, left, age 57. Currently using Estrogen, beginning at age 52 for 3 years. Currently using Progesterone, beginning at age 52 for 3 years. Hormonal Contraceptives for 10 years from age 21 until age 33. 09/14/2022, Lumpectomy on the Left side. 09/14/2022, Malignant MG pre op needle loc LT on the left side. 08/27/2022, MG discontinued stereo core LT on the left side. Prior Study Comparison: 03/06/2019 Bilateral Screening Mammogram, [facility]. 07/02/2020 Bilateral Screening Mammogram, [facility]. 07/29/2021 Bilateral Screening Mammogram, [facility]. 07/30/2022 Bilateral MG 3D screening mammo w/cad, [facility]. 08/05/2022 Left MG 3D work up w/cad LT, [facility]. Tissue Density: There are scattered fibroglandular densities. Findings: Analyzed By CAD. Postsurgical change left breast. There is a large mass at the surgical site posterior central aspect of the left breast measuring up to 8.9 cm. This likely corresponds to the postoperative seroma described on the patient's November 2022 ultrasound. Repeat ultrasound to assess for any change. Areas of asymmetric density on the right remain unchanged. Palpable marker along the inferior aspect of the right breast for which further ultrasound evaluation is recommended. Overall Assessment: Incomplete: need additional imaging evaluation, BI-RAD 0 Management: Diagnostic Breast Ultrasound of both breasts. Electronically signed and approved by: Ilia He M.D. Radiologist
--- NOTE | 2023-06-02 08:28 | USB ---
Reason for Exam: Clinical finding. Patient History: Menarche at age 14. First Full-Term at age 28. Postmenopausal. Breast cancer, left, age 57. Currently using Estrogen, beginning at age 52 for 3 years. Currently using Progesterone, beginning at age 52 for 3 years. Hormonal Contraceptives for 10 years from age 21 until age 33. 09/14/2022, Lumpectomy on the Left side. 09/14/2022, Malignant MG pre op needle loc LT on the left side. 08/27/2022, MG discontinued stereo core LT on the left side. Technique: Method: Targeted. Prior Study Comparison: 07/30/2022 Bilateral MG 3D screening mammo w/cad, [facility]. 08/05/2022 Left MG 3D work up w/cad LT, [facility]. 11/26/2022 Left MG 3D diag mammo w/cad LT, [facility]. Findings: The upper inner quadrant of the left breast, the lower outer quadrant of the right breast, the axilla of both breasts and the retroareolar of both breasts were scanned. Targeted ultrasound right breast lower outer quadrant 6:00 to 9:00 including the subareolar region and axilla. * At the patient's reported palpable site at 6:00 or 8:00, no discrete abnormality is seen. * No other solid or cystic lesion or axillary lymphadenopathy. Targeted ultrasound left breast upper-outer quadrant 9:00 to 12:00 including the subareolar region and axilla. * There is redemonstrated large seroma predominantly at the 10:00 position centrally. This measures 6.9 x 5.3 x 1.6 cm. This is in comparison to 8.6 x 8.0 x 2.3 cm, previously. * No other solid or cystic lesion or axillary lymphadenopathy. Overall Assessment: Probably benign, BI-RAD 3 Management: Diagnostic Mammogram of the left breast in 6 months. Ongoing short interval follow-up left breast to assess for any evolving posttreatment change. Further clinical management of any suspicious palpable area on the right. A clinical breast exam by your physician is recommended on an annual basis and results should be correlated with mammographic findings. This exam should not preclude additional follow-up of suspicious palpable abnormalities. Results were given to the patient verbally at the time of exam. Electronically signed and approved by: Ilia He M.D. Radiologist
== END | disposition home or self-care (01) ==
LOC: RADMAMWWP 07:22
PROVIDERS: ATTEND Obstetrics & Gynecology
DX: N63.14 Unspecified lump in the right breast, lower inner quadrant (principal); N63.20 Unspecified lump in the left breast, unspecified quadrant; R92.323 Mammographic fibroglandular density, bilateral breasts; Z85.3 Personal history of malignant neoplasm of breast; Z78.0 Asymptomatic menopausal state
CPT/HCPCS: 77062; 77066

== ENCOUNTER → 2023-09-29 | Outpatient (CLI) | payer OTHER ==
[2023-09-29 14:31] LABS: Basophils # (A) 0.03 X 10*3/uL (0.00-0.10); Basophils % (A) 0.6 %; Eosinophils # (A) 0.06 X 10*3/uL (0.04-0.35); Eosinophils % (A) 1.2 %; HCT 39.3 % (37.2-46.3); HGB 12.5 g/dL (12.0-15.0); Immature Grans, Automated 0 %; Lymphocytes # (A) 1.39 X 10*3/uL (0.90-5.00); Lymphocytes % (A) 27.1 %; MCH 30.5 pg (27.0-32.0); MCHC 31.8 g/dL (32.0-37.0); MCV 95.9 FL (80.0-97.0); Mean Platelet Volume 12.2 FL (9.5-12.2); Monocytes # (A) 0.48 X 10*3/uL (0.20-1.00); Monocytes % (A) 9.4 %; NRBC Per 100 WBC 0 X 10*3/uL (0.00-0.01); Neutrophils # (A) 3.17 X 10*3/uL (1.80-7.70); Neutrophils % (A) 61.7 %; Platelet Count 170 X 10*3/uL (140-440); WBC 5.13 X 10*3/uL (4.50-10.00)
[2023-09-29 15:22] LABS: ALT 28 U/L (8-44); AST 22 U/L (13-35); Albumin 4.1 g/dL (3.8-4.9); Albumin/Globulin Ratio 1.86 Ratio (1.60-3.17); Alkaline Phosphatase 96 U/L (41-126); BUN/Creat Ratio 23.43 Ratio (12.00-20.00); Blood Urea Nitrogen 16.4 mg/dL (9.0-27.0); Calcium 9.5 mg/dL (8.7-10.3); Carbon Dioxide 24.5 mmol/L (21.6-31.8); Chloride 109 mmol/L (96-109); Chol/HDL Ratio 2.13 Ratio; Globulin 2.2 g/dL (1.6-3.3); Glucose 91 mg/dL (70-110); LDL Cholesterol,Calculated 85.8 mg/dL (0.0-131.0); Potassium 4.4 mmol/L (3.5-5.5); Sodium 144 mmol/L (135-145); Total Bilirubin 0.2 mg/dL (0.3-1.2); Total Protein 6.3 g/dL (6.2-8.2)
== END | disposition home or self-care (01) ==
LOC: LABWHC1 07:00
PROVIDERS: ATTEND Family Medicine
DX: Z00.00 Encounter for general adult medical examination without abnormal findings (principal); E55.9 Vitamin D deficiency, unspecified; E78.00 Pure hypercholesterolemia, unspecified
CPT/HCPCS: 36415; 80053; 80061; 82306; 84443; 85025